=== PATIENT | male | born 2000 | race Caucasian/White ===

== ENCOUNTER 2023-02-14 20:52 | Emergency (ER) | payer OTHER ==
--- NOTE | 2023-02-14 21:21 | ED Physician Documentation ---
PD HPI UPPER EXT INJURY - Stated complaint Stated Complaint: LT PALM INJ - Chief complaint Chief Complaint: Laceration - History obtained from History obtained from: Patient (Ambidextrous gentleman who is up-to-date on tetanus stabbed his left palm accidentally while trying to open something with a knife just prior to arrival.) PD PAST MEDICAL HISTORY - Present Medications Home Medications: Ambulatory Orders Medication Instructions Recorded Confirmed No Known Home Medications 02/14/23 02/14/23 - Allergies Allergies/Adverse Reactions: Allergies Allergy/AdvReac Type Severity Reaction Status Date / Time No Known Drug Allergies Allergy Verified 02/14/23 21:11 PD ED PE NORMAL - Vitals Vital signs reviewed: Yes - General General: Alert and oriented X 3, No acute distress - Extremities Extremities: Other (2 cm laceration proximal to the left second finger on the palmar surface without distal neurovascular compromise.) - Neuro Neuro: Alert and oriented X 3, Normal speech Results - Vitals Vitals: Vital Signs - 24 hr 02/14/23 21:01 Temperature 36.2 C L Heart Rate 64 Respiratory 18 Rate Blood Pressure 144/57 H O2 Saturation 100 Oxygen O2 Source Room air Procedures - Laceration (location) Left palm Length in cm: 2 Wound type: Stellate, Into subcut fat Neurovascular status: Sensory intact, Motor intact Tendon involvement: Tendon intact Anesthesia: Lidocaine 1% with epi Wound preparation: Irrigated copiously NS Skin layer closure: Nylon, Interrupted, Size #-0 - enter number (4-0), Sutures - enter # (7) Other: Patient tolerated well, No complications, Neurovascular intact, Tetanus UTD Departure - Departure Disposition: 01 Home, Self Care Clinical Impression: Laceration Condition: Good Record reviewed to determine appropriate education?: Yes Instructions: ED Laceration Hand Comments: 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 Return for new or worsening symptoms. Come back for any signs of infection which would include: Redness, swelling, drainage, increased pain, or fevers. You can wash it soap and water. Keep it covered and moist with bacitracin oint ment which is available over the counter; avoid neosporin. Follow-up with your physician in about 14 days for suture removal.
[2023-02-14 21:48] VITALS: BP 145/36
== END 2023-02-14 21:49 | disposition home or self-care (01) ==
LOC: ED 20:52
DX: S61.412A Laceration without foreign body of left hand, initial encounter (principal); W26.0XXA Contact with knife, initial encounter
CPT/HCPCS: 12001; 99281

== ENCOUNTER 2023-02-15 09:33 | Emergency (ER) | payer OTHER ==
--- NOTE | 2023-02-15 09:53 | ED Physician Documentation ---
PD HPI WOUND RECHECK - Stated complaint Stated Complaint: LT HAND INJ SWELLING - Chief complaint Chief Complaint: Laceration - Histroy obtained from History obtained from: Patient - History of Present Illness Location: Left Hand Timing - onset: Yesterday Associated symptoms: Swelling, Pain. No: Fever, Redness, Drainage Recently seen: Emergency Dept (he cut his thenar web with knife yesterday and seen in ER with suture of the wound. He states this morning, there was dried blood on dressing, with some redness and increased pain locally, and some feeling of numbness radial side index finger. This was not present last evening.) Review of Systems Constitutional: denies: Fever, Chills PD PAST MEDICAL HISTORY - Past Medical History Past Medical History: No - Present Medications Home Medications: Ambulatory Orders Medication Instructions Recorded Confirmed Ibuprofen [Motrin] 600 mg PO TID PRN #15 tab 02/15/23 cephALEXin [Keflex] 500 mg PO TID #15 cap 02/15/23 - Allergies Allergies/Adverse Reactions: Allergies Allergy/AdvReac Type Severity Reaction Status Date / Time No Known Drug Allergies Allergy Verified 02/15/23 09:43 PD ED PE NORMAL - Vitals Vital signs reviewed: Yes - General General: Alert and oriented X 3, No acute distress, Well developed/nourished - Derm Derm: Normal color, Warm and dry - Neuro Neuro: No motor deficit (guarded movement of the area due to hurting. There is slight decrease of sensation radial side of index finger to touch but feels sharp. The wound is cleansed of some dried blood. It appears mild bruising color but not red per se. ) Results - Vitals Vitals: Vital Signs - 24 hr 02/15/23 02/15/23 09:39 10:40 Temperature 36.9 C Heart Rate 74 65 Respiratory 16 16 Rate Blood Pressure 155/72 H 139/90 H O2 Saturation 100 98 Oxygen O2 Source Room air PD Medical Decision Making - ED course Complexity details: considered differential (he has swelling of the wound area, perhaps mild early bruising red color locally. No purulence. Had some bleeding into dressing overnight. Presume some local swelling led to numbness finger, as he says was not that way with injury nor after suturing. Does not appear infected at this time.), d/w patient ED course: Does not appear infectied. That said, early infection could give some of the swelling and increased pain, and is prudent enough to add oral abx in case. Departure - Departure Disposition: 01 Home, Self Care Clinical Impression: Visit for wound check Condition: Stable Record reviewed to determine appropriate education?: Yes Follow-Up: JOSSELNIE Bazan [Provider Group] Prescriptions: cephALEXin [Keflex] 500 mg PO TID #15 cap Ibuprofen [Motrin] 600 mg PO TID PRN #15 tab PRN Reason: Pain Comments: I think the wound looks a little bit red and swollen from just inflammation and probably some blood under the skin. That likely is putting pressure on the nerve and causing the numbness in the finger. We can use a finger splint to help reduce motion and that can help the swelling. Reduced use of the hand today and tomorrow as well. It does not look obviously infected at this point. That said early infection would have these types of symptoms as well so it is prudent to at this point prescribe same antibiotics as well as anti-inflammatories just in case. [facility]. Discharge Date/Time: 02/15/23 10:40
[2023-02-15] MEDS ORDERED: cephALEXin 250 MG CAPSULE PO STA (10:01)
[2023-02-15] MEDS ORDERED: IBUPROFEN 600 MG TABLET PO STA (10:01)
[2023-02-15 10:42] VITALS: BP 139/90
== END 2023-02-15 10:40 | disposition home or self-care (01) ==
LOC: ED 09:33
DX: Z48.00 Encounter for change or removal of nonsurgical wound dressing (principal)
CPT/HCPCS: 99282; A9270